=== PATIENT | female | born 2000 | race Caucasian/White ===

== ENCOUNTER 2022-02-09 12:46 | Inpatient (IN) | payer OTHER ==
[~2022-02-09] VITALS: Ht 160 cm; Wt 86.6 kg
[2022-02-09 14:32] LABS: RED BLOOD COUNT 4.49 M/UL (4.00-5.10); WHITE BLOOD COUNT 12.6 K/UL (4.5-11.0)
[2022-02-09 14:51] LABS: BUN/CREATININE RATIO 11 (0-10)
[2022-02-10 06:02] LABS: HEMOGLOBIN 8.9 gm/dl (12.3-15.3)
[2022-02-11] MEDS ORDERED: COLACE 100MG C100 MG PO (08:04)
[2022-02-11] MEDS ORDERED: HYDROCODON-ACE1 EAC2 PO (08:05)
[2022-02-11] MEDS ORDERED: NAPROXEN250 MG PO (08:05)
== END 2022-02-12 18:24 | disposition home or self-care (01) | DRG 787 ==
LOC: GENOP 12:46 → OB 14:13
PROVIDERS: ADMIT Obstetrics & Gynecology
PROC: 10D00Z1 Extraction of Products of Conception, Low, Open Approach (ICD-10-PCS; principal; 2022-02-09 16:49)
DX: O76 Abnormality in fetal heart rate and rhythm complicating labor and delivery (principal); D62 Acute posthemorrhagic anemia; F41.9 Anxiety disorder, unspecified; O99.344 Other mental disorders complicating childbirth; O75.89 Other specified complications of labor and delivery; F32.A Depression, unspecified; O90.81 Anemia of the puerperium; Z28.310 Unvaccinated for COVID-19; Z82.49 Family history of ischemic heart disease and other diseases of the circulatory system; Z37.0 Single live birth; Z3A.38 38 weeks gestation of pregnancy; Z83.3 Family history of diabetes mellitus; Z82.5 Family history of asthma and other chronic lower respiratory diseases; Z81.8 Family history of other mental and behavioral disorders; Z86.16 Personal history of COVID-19
CPT/HCPCS: 36415; 80053; 80307; 81001; 82800; 85014; 85018; 85025; 85384; 90715; C9113; J0690; J1170; J2210; J2405; J2590; J3010